=== PATIENT | male | born 1980 ===

== ENCOUNTER 2017-10-21 15:19 | Emergency (ER) | payer OTHER ==
[2017-10-21] MEDS ORDERED: Sodium Chloride 0.9% 1,000 ML IV STA (16:53)
--- NOTE | 2017-10-21 17:11 | ED PDOC ---
HPI: General Adult Time Seen by Provider: 10/21/17 16:32 Chief Complaint (Nursing): Flu-like Symptoms Chief Complaint (Provider): Fever History Per: Patient History/Exam Limitations: no limitations Onset/Duration Of Symptoms: Days (4) Current Symptoms Are (Timing): Still Present Additional History Per: Patient Additional Complaint(s): 37 y/o male with history of HIV who reports that his T-Cell count is "normal" and is compliant with antiviral therapy, complaining of fever for 4 days associated with diffuse body aches, head ache, joint pain (knees and low back). Patient also complains of a sore throat that began today. He also complains of swelling of the left groin that he has had for one week, but thought it was because he fell in his bathroom and did a split. He has been taking taking Motrin intermittently with the last dose two days ago. Patient denies any nausea , vomiting, diarrhea, constipation, rash, sick contacts, recent travel, new sexual partners, dysuria, hematuria, urinary frequency, penile discharge or penile lesion. PMD: [facility] at [facility] Past Medical History Vital Signs: Last Vital Signs Temp 98.8 F 10/21/17 21:16 Pulse 88 10/21/17 21:16 Resp 16 10/21/17 21:16 BP 114/77 10/21/17 21:16 Pulse Ox 97 10/21/17 21:38 - Medical History PMH: HIV - Surgical History Surgical History: No Surg Hx - Family History Family History: States: Unknown Family Hx - Social History Current smoker - smoking cessation education provided: No Ex-Smoker (has not smoked in the last 12 months): No Alcohol: Social Drugs: Denies - Home Medications Home Medications: Ambulatory Orders Medication Instructions Recorded Ibuprofen [Motrin] 600 mg PO Q6 PRN #15 tab 07/10/16 Tobramycin [Tobrex] 5 ml TOP QID #1 bottle 07/10/16 Acetaminophen [Tylenol Extra 1,000 mg PO Q6 PRN #100 tablet 10/21/17 Strength] Acyclovir [Zovirax] 400 mg PO TID #30 tablet 10/21/17 Doxycycline Monohydrate 100 mg PO BID #42 tablet 10/21/17 Ibuprofen [Motrin Tab] 600 mg PO Q8 PRN #60 tab 10/21/17 - Allergies Allergies/Adverse Reactions: Allergies Allergy/AdvReac Type Severity Reaction Status Date / Time No Known Allergies Allergy Verified 10/21/17 15:57 Review of Systems ROS Statement: Except As Marked, All Systems Reviewed And Found Negative Constitutional: Positive for: Fever ENT: Positive for: Throat Pain Genitourinary Male: Positive for: Other (inguinal swelling) Musculoskeletal: Positive for: Back Pain, Other (joint pain, myalgias) Physical Exam - Reviewed Nursing Documentation Reviewed: Yes Vital Signs Reviewed: Yes - Physical Exam Appears: Positive for: Non-toxic (tired) Skin: Positive for: Diaphoresis Eye Exam: Positive for: EOMI, PERRL ENT: Positive for: Normal ENT Inspection, Pharynx Is (normal). Negative for: Pharyngeal Erythema, Tonsillar Exudate, Tonsillar Swelling Neck: Positive for: Normal, Painless ROM, Supple Cardiovascular/Chest: Positive for: Regular Rate, Rhythm. Negative for: Murmur Respiratory: Positive for: Normal Breath Sounds. Negative for: Wheezing, Respiratory Distress Gastrointestinal/Abdominal: Positive for: Soft. Negative for: Tenderness, Mass , Distended, Guarding Male Genital Exam: Positive for: normal genitalia (uncircumcised), no hernia, inguinal tenderness (left, over area of swelling), other (3x2 cm left ingunal lymphadenopathy, without fluctuance, but is mildly tender to palpation. ). Negative for: epididymal tenderness, erythema, scrotum tenderness (R), scrotum tenderness (L), testicular tenderness (R), testicular tenderness (L) Back: Positive for: Other (right lumbacr tenderness to palpation, bilateral straight leg raise is negative). Negative for: Vertebral Tenderness Extremity: Positive for: Normal ROM. Negative for: Deformity Lymphatic: Positive for: Inguinal Node Tenderness (left). Negative for: Adenopathy (cervical), Axilla Node Tenderness Neurologic/Psych: Positive for: Alert. Negative for: Motor/Sensory Deficits - Laboratory Results Result Diagrams: 10/21/17 17:50 10/21/17 17:50 - ECG O2 Sat by Pulse Oximetry: 97 (RA) Pulse Ox Interpretation: Normal - Radiology X-Ray: Interpreted by Me, Viewed By Me X-Ray Interpretation: No Acute Disease Medical Decision Making Medical Decision Making: Impression: Fever, HIV, Inguinal Lymphadenopathy Differential diagnosis includes, but is not limited to: Lymphoma, sTD, Inguinal Abscess, Viral Syndrome, Sepsis Plan: - Labs - IVF, Tylenol, Toradol - UA Accession No. : [id number] Patient Name / ID : PETE FITZGERALD / [id number] Exam Date : 10/21/2017 17:44:43 ( Approved ) Study Comment : Sex / Age : M / 37Y Creator : Anival Bethea MD Dictator : Anival Bethea MD Airframe Design Engineer : Track Sweeper : Anival Bethea MD Approver2 : Report Date : 10/21/2017 18:05:03 My Comment : PROCEDURE: left Groin Ultrasonography HISTORY: LEFT groin swelling h/o HIV possible lymphoma COMPARISON: None available. TECHNIQUE: High-frequency ultrasonography of the left inguinal region was performed for evaluation of palpable abnormality. Transverse and longitudinal projections of been submitted. FINDINGS: In the area of interest of the palpable abnormality is a 2.7 x 1.7 x 2.5 cm hypoechoic lesion superficial to a nearly identical but smaller hypoechoic lesion measuring 1.6 x 1.0 x 1.6 cm. The larger of the 2 exhibits limited peripheral color Doppler blood flow. No central fatty echoes are identified to suggest lymph nodes, however, these may reflect suppurative or necrotic lymph nodes. Small metastases or abscesses are the differential diagnosis. IMPRESSION: Two small, separate over necrotic lymph nodes are suggested at the left inguinal region versus possible small abscesses or even metastases. Further clinical evaluation advised. CT scan ordered to further evaluate for metastases or other lesions DW pt findings. Pt reports feeling better s/p fluids/toradol/tylenol. [facility] Preliminary Radiology Report Call: [phone] assistance Online chat: [email or web address] Patient Name: LIA FREEMAN (Age): 1980 37 Gender: M Date of Exam: 10/21/2017 Referring Physician: Michaela Toney # of Images: [id number] Ordered As: CT ABD PELVIS IV CONTRAST ONLY EXAM: CT Abdomen and Pelvis With Intravenous Contrast EXAM DATE/TIME: 10/21/2017 7:12 PM CLINICAL HISTORY: 37 years old, male; Signs and symptoms; Fever and mass, lump, or swelling; Other : Lt inguinal; Additional info: Fever back pain left inguinal swelling R/O mets TECHNIQUE: Axial computed tomography images of the abdomen and pelvis with intravenous contrast. All CT scans at this facility use one or more dose reduction techniques, viz.: automated exposure control; ma/kV adjustment per patient size (including targeted exams where dose is matched to indication; i.e. head); or iterative reconstruction technique. Coronal and sagittal reformatted images were created and reviewed. CONTRAST: 90 mL of [id number] administered intravenously. COMPARISON: No relevant prior studies available. FINDINGS: Lung bases: Unremarkable. No mass. No consolidation. ABDOMEN: Liver: The liver is unremarkable. Gallbladder and bile ducts: The gallbladder is unremarkable. No biliary ductal dilatation. Pancreas: The pancreas is unremarkable. Spleen: The spleen is unremarkable. Adrenals: The adrenal glands are unremarkable. Kidneys and ureters: Symmetric renal enhancement without hydronephrosis. Stomach and bowel: No evidence of bowel obstruction. No pericolonic inflammatory stranding. Appendix: A normal appendix is identified. PELVIS: Bladder: Unremarkable. No mass. Reproductive: Unremarkable as visualized. LIA FREEMAN | Preliminary Radiology Report WAFER PRODUCTION WORKER (QA) DISCREPANCY? If there is a discrepancy between the preliminary and final interpretation, please notify [facility] via [email or web address]. If you do not have access to our QA portal, call our QA team at [phone] CONFIDENTIALITY STATEMENT This report is intended only for the use of the referring physician, and only in accordance with law, If you received this in error, call [phone] Page 2 of 2 ABDOMEN and PELVIS: Intraperitoneal space: No significant peritoneal free fluid. No free peritoneal air. Bones/joints: No acute osseous abnormality. Soft tissues: No soft tissue swelling. Vasculature: Unremarkable. No abdominal aortic aneurysm. Lymph nodes: 2.5 cm enlarged left inguinal lymph node with adjacent inflammatory stranding. Adjacent borderline enlarged 1 cm and 0.9 cm lymph nodes. IMPRESSION: 2.5 cm enlarged left inguinal lymph node with adjacent inflammatory stranding. Adjacent borderline enlarged lymph nodes. Lymphadenitis, reactive adenopathy and neoplasm are considered. Thank you for allowing us to participate in the care of your patient. Dictated and Authenticated by: Evens Marshall MD 10/21/2017 8:27 PM Eastern Time ([place] & [place]) Labs with no emergently significant lab abnormalities. Pt has syndrome of acute STD. DW pt findings. Pt will be treated for LGV, Chlamydia, Gonorrhea, Syphilis, HSV. Mandatory followup with his clinic next week. Reasons to RTER dw pt. Labs reviewed and was positive for Syphilis. Patient informed of this and he reports that he has been treated for this in the past. -- Scribe Attestation: Documented by Stephania Montes, acting as a scribe for Michaela Toney MD. Provider Scribe Attestation: All medical record entries made by the Scribe were at my direction and personally dictated by me. I have reviewed the chart and agree that the record accurately reflects my personal performance of the history, physical exam, medical decision making, and the department course for this patient. I have also personally directed, reviewed, and agree with the discharge instructions and disposition. Disposition - Clinical Impression Clinical Impression: Inguinal lymphadenopathy Doctor Will See Patient In The: Office Counseled Patient/Family Regarding: Diagnosis, Need For Followup, Rx Given - Disposition Disposition: Routine/Home Disposition Time: 20:30 Condition: IMPROVED Additional Instructions: VISITA NOEL DOCTOR PROXIMO SEMANA A CHEQAR DE NUEVO REGRESA SI SIENTE PEOR. LO QUE NECESITA SABER: La linfoadenopata es leo inflamacin en dolly ganglios linfticos. Los ganglios linfticos son rganos pequeos que son parte de noel sistema inmunolgico. Los ganglios linfticos esta localizados por todo noel cuerpo. Se pueden sentir mejor en noel airam, debajo del noel brazos y cerca de noel neto. Linfoadenopata puede ocurir en fidel o ms reas de noel cuerpo. Generalmente es causada por leo infecci n. [facility]: Regrese a la larry de emergencias si: Los gnglios linfticos inflamados estn sangrando. Los gnglios linfticos inflamados en el airam afectan la respiracin o habilidad para tragar. Pregntele a noel mdico qu vitaminas y minerales son adecuados para usted. Usted tiene fiebre. Usted tiene leo nueva inflamacin o dolor en los ganglos linfticos. Usted tiene un sarpullido. Dolly gnglios linfticos permanecen inflamados y dolorosos o se alfred agrandado. Dolly gnglios linfticos tienen lneas hardin a noel alrededor, o la piel alrededor de los gnglios esta enrojecida. Usted tiene preguntas o inquietudes acerca de noel condicin o cuidado. Acuda a dolly consultas de control con noel mdico segn le indicaron. Anote dolly preguntas para que se acuerde de hacerlas lucio dolly visitas. Cuidados personales: No empuje ni apriete los gnglios linfticos que estn inflamados. Aplique calor sobre los ganglios linfticos. Puede usar compresas tibias, o leo almohadilla elctrica a leo temperatura baja. Descanse tanto umm sea necesario. Si tiene fiebre, descanse hasta que noel temperatura se haya normalizado. Regrese a dolly actividades normales diarias lentamente despus que haya suspendido noel fiebre. Prescriptions: Acetaminophen [Tylenol Extra Strength] 1,000 mg PO Q6 PRN #100 tablet PRN Reason: FEVER OR PAIN Acyclovir [Zovirax] 400 mg PO TID #30 tablet Doxycycline Monohydrate 100 mg PO BID #42 tablet Ibuprofen [Motrin Tab] 600 mg PO Q8 PRN #60 tab PRN Reason: Pain, Moderate (4-7) Instructions: Fever, Adult (DC) Forms: [facility] ED School/Work Excuse Print Language: VENEZUELAN
[2017-10-21 17:56] LABS: SQUAMOUS EPITHIAL 2 /hpf (0-5); URINE BACTERIA RARE (<OCC); URINE BILIRUBIN NEGATIVE (NEGATIVE); URINE BLOOD SMALL (NEGATIVE); URINE CLARITY SLIGHTY-CLOUDY (Clear); URINE COLOR YELLOW (YELLOW); URINE GLUCOSE (UA) NEG (Normal); URINE LEUKOCYTE ESTERASE NEG Leu/uL (Negative); URINE PROTEIN 30 mg/dL (NEGATIVE)
[2017-10-21 18:00] LABS: VENOUS BLOOD GAS BASE EXCESS 6.7 mmol/L (0.0-2.0); VENOUS BLOOD GAS PCO2 55 mmHg (40-60); VENOUS BLOOD GAS PO2 33 mm/Hg (30-55); VENOUS BLOOD PH 7.39 (7.32-7.43)
--- NOTE | 2017-10-21 18:06 | US ---
PROCEDURE: left Groin Ultrasonography HISTORY: LEFT groin swelling h/o HIV possible lymphoma COMPARISON: None available. TECHNIQUE: High-frequency ultrasonography of the left inguinal region was performed for evaluation of palpable abnormality. Transverse and longitudinal projections of been submitted. FINDINGS: In the area of interest of the palpable abnormality is a 2.7 x 1.7 x 2.5 cm hypoechoic lesion superficial to a nearly identical but smaller hypoechoic lesion measuring 1.6 x 1.0 x 1.6 cm. The larger of the 2 exhibits limited peripheral color Doppler blood flow. No central fatty echoes are identified to suggest lymph nodes, however, these may reflect suppurative or necrotic lymph nodes. Small metastases or abscesses are the differential diagnosis. IMPRESSION: Two small, separate over necrotic lymph nodes are suggested at the left inguinal region versus possible small abscesses or even metastases. Further clinical evaluation advised.
[2017-10-21 18:07] LABS: BASO # 0.1 K/uL (0.0-0.2); BASO % 0.4 % (0.0-2.0); EOS # 0.1 K/uL (0.0-0.7); EOS % 1.1 % (0.0-4.0); HEMOGLOBIN 12.3 g/dL (12.0-18.0); LYMPH # 2.5 K/uL (1.0-4.3); LYMPH % 20.5 % (20.0-40.0); MEAN CELL VOLUME 91.8 fl (80.0-94.0); MEAN CORPUSCULAR HEMOGLOBIN 31.1 pg (27.0-31.0); MEAN CORPUSCULAR HGB CONC 33.9 g/dL (33.0-37.0); MEAN PLATELET VOLUME 8.8 fl (7.2-11.7); MONO # 1.1 K/uL (0.0-0.8); MONO % 9.3 % (0.0-10.0); NEUT # 8.2 K/uL (1.8-7.0); NEUT % 68.7 % (50.0-75.0); RBC 3.97 Mil/uL (4.40-5.90); RED CELL DISTRIBUTION WIDTH 12.8 % (11.5-14.5)
[2017-10-21 18:09] LABS: ALB/GLOB RATIO 1.1 (1.0-2.1); ALBUMIN 4.1 g/dL (3.5-5.0); ALT/SGPT 38 U/L (21-72); AST/SGOT 23 U/L (17-59); BLOOD UREA NITROGEN 11 mg/dl (9-20); CALCIUM 9.4 mg/dL (8.4-10.2); GFR AFRICAN-AMERICAN > 60; GFR NON-AFRICAN AMERICAN > 60
[2017-10-21 18:16] LABS: INR 1.2 (0.9-1.2); PARTIAL THROMBOPLASTIN TIME 28.4 Seconds (25.6-37.1); PROTHROMBIN TIME 13.6 Seconds (9.8-13.1)
--- NOTE | 2017-10-21 18:28 | RAD ---
HISTORY: fever COMPARISON: No prior. TECHNIQUE: Chest PA and lateral FINDINGS: LUNGS: No active pulmonary disease. PLEURA: No significant pleural effusion identified. No pneumothorax apparent. CARDIOVASCULAR: Normal. OSSEOUS STRUCTURES: No significant abnormalities. VISUALIZED UPPER ABDOMEN: Normal. OTHER FINDINGS: None. IMPRESSION: No acute cardiopulmonary disease appreciated.
[2017-10-21] MEDS ORDERED: Iohexol 300 100 ML IJ ONE (19:24)
[2017-10-21] MEDS ORDERED: Sodium Chloride 0.9% 100 ML ONE (19:25)
[2017-10-21] MEDS ORDERED: Penicillin G Benzathine 2.4 Mill Unit/4 ml Syr IM STA (20:38)
[2017-10-21] MEDS ORDERED: cefTRIAXone (Rocephin) 250 mg Inj IM STA (20:39)
[2017-10-21] MEDS ORDERED: cefTRIAXone (Rocephin) 250 mg Inj ONE (21:08)
[2017-10-21 21:16] VITALS: BP 114/77; PULSE 88; RESP 16; TEMP 98.8
[2017-10-21 21:33] LABS: RAPID PLASMA REAGIN REACTIVE (NONREACTIVE)
[2017-10-21 21:38] VITALS: O2SAT 97
--- NOTE | 2017-10-22 08:43 | CT ---
PROCEDURE: CT Abdomen and Pelvis with contrast HISTORY: fever back pain LEFT inguinal swelling r/o mets COMPARISON: None. TECHNIQUE: Contrast dose: 90 mL Omnipaque 300 Radiation dose: Total exam DLP = 302.3 mGy-cm. This CT exam was performed using one or more of the following dose reduction techniques: Automated exposure control, adjustment of the mA and/or kV according to patient size, and/or use of iterative reconstruction technique. FINDINGS: LOWER THORAX: Unremarkable. LIVER: Unremarkable. No gross lesion or ductal dilatation. GALLBLADDER AND BILE DUCTS: Unremarkable. PANCREAS: Unremarkable. No gross lesion or ductal dilatation. SPLEEN: Unremarkable. ADRENALS: Unremarkable. No mass. KIDNEYS AND URETERS: Unremarkable. No hydronephrosis. No solid mass. VASCULATURE: Unremarkable. No aortic aneurysm. BOWEL: Unremarkable. No obstruction. No gross mural thickening. APPENDIX: Normal appendix. PERITONEUM: Unremarkable. No free fluid. No free air. LYMPH NODES: 2.9 x 2.5 cm left inguinal lymph node with adjacent inflammatory change. Adjacent borderline enlarged left inguinal regional lymph nodes. BLADDER: Unremarkable. REPRODUCTIVE: Unremarkable. BONES: No acute fracture. OTHER FINDINGS: None. IMPRESSION: Enlarged left inguinal lymph node with adjacent inflammatory change and adjacent prominent lymph nodes. No evidence of distal lymphadenopathy.
[2017-10-22 15:29] LABS: % CD4 (T HELPER CELL) 19 Percent (30-61); % CD8 (SUPPRESSOR T CELL) 57 Percent (12-42); ABSOLUTE CD4 CELLS 487 Cells/mcL (490-1740); ABSOLUTE CD8 CELLS 1469 Cells/mcL (180-1170); ABSOLUTE LYMPHOCYTES 2578 Cells/mcL (850-3900); HELPER/SUPPRESSOR RATIO 0.33 Ratio (0.86-5.00)
== END 2017-10-21 22:05 | disposition home or self-care (01) ==
LOC: H.ER 15:19
DX: R59.1 Generalized enlarged lymph nodes (principal); Z21 Asymptomatic human immunodeficiency virus [HIV] infection status; Z87.891 Personal history of nicotine dependence
CPT/HCPCS: 71046; 74177; 76882; 80053; 81003; 82803; 85025; 85610; 85730; 86308; 86360; 86592; 86695; 86696; 86780; 87040; 87070; 87086; 87430; 87491; 87536; 87591; 87804; 96372; 96374; 99283; J0561; J0696; J1885; J7040; Q9967

== ENCOUNTER 2017-10-28 15:07 | Emergency (ER) | payer OTHER ==
[2017-10-28 15:23] VITALS: BP 123/78; PULSE 70; RESP 18; TEMP 98.1; O2SAT 100
[2017-10-28] MEDS ORDERED: Penicillin G Benzathine 2.4 Mill Unit/4 ml Syr IM STA (15:56)
--- NOTE | 2017-10-28 16:07 | ED PDOC ---
HPI: General Adult Time Seen by Provider: 10/28/17 15:20 Chief Complaint (Nursing): Abnormal Labs Chief Complaint (Provider): Positive RPR - Call back History Per: Patient History/Exam Limitations: no limitations Additional Complaint(s): Pt was seen in ER 2 days ago for headache and fever. Pts RPR was positive. Pt returns to ER for treatment. Pt states he was treated for syphilis 1 year ago. Past Medical History Reviewed: Historical Data, Nursing Documentation, Vital Signs Vital Signs: Last Vital Signs Temp 98.1 F 10/28/17 15:19 Pulse 70 10/28/17 15:19 Resp 18 10/28/17 15:19 BP 123/78 10/28/17 15:19 Pulse Ox 100 10/28/17 15:19 - Medical History PMH: HIV, Sexually Transmitted Disease - Surgical History Surgical History: No Surg Hx - Family History Family History: States: Unknown Family Hx - Living Arrangements Living Arrangements: With Family - Social History Current smoker - smoking cessation education provided: No - Home Medications Home Medications: Ambulatory Orders Medication Instructions Recorded Ibuprofen [Motrin] 600 mg PO Q6 PRN #15 tab 07/10/16 Tobramycin [Tobrex] 5 ml TOP QID #1 bottle 07/10/16 Acetaminophen [Tylenol Extra 1,000 mg PO Q6 PRN #100 tablet 10/21/17 Strength] Acyclovir [Zovirax] 400 mg PO TID #30 tablet 10/21/17 Doxycycline Monohydrate 100 mg PO BID #42 tablet 10/21/17 Ibuprofen [Motrin Tab] 600 mg PO Q8 PRN #60 tab 10/21/17 - Allergies Allergies/Adverse Reactions: Allergies Allergy/AdvReac Type Severity Reaction Status Date / Time No Known Allergies Allergy Verified 10/21/17 15:57 Review of Systems ROS Statement: Except As Marked, All Systems Reviewed And Found Negative Constitutional: Negative for: Fever, Chills Skin: Negative for: Rash, Lesions Neurological: Negative for: Seizures, Altered Mental Status Physical Exam - Reviewed Nursing Documentation Reviewed: Yes Vital Signs Reviewed: Yes - Physical Exam Appears: Positive for: Well, Non-toxic, No Acute Distress Head Exam: Positive for: ATRAUMATIC, NORMAL INSPECTION, NORMOCEPHALIC Skin: Positive for: Normal Color, Warm, DRY Eye Exam: Positive for: Normal appearance ENT: Positive for: Normal ENT Inspection Neck: Positive for: Normal, Painless ROM Cardiovascular/Chest: Positive for: Regular Rate, Rhythm Respiratory: Positive for: CNT, Normal Breath Sounds Back: Positive for: Normal Inspection Extremity: Positive for: Normal ROM Neurologic/Psych: Positive for: Alert, Oriented - ECG O2 Sat by Pulse Oximetry: 100 Medical Decision Making Medical Decision Making: Discussed with Dr. Delgado. Would like pt treated and syphilis titers ordered. States patient can follow-up with him. Called lab and was told the order for syphilis titer is FTA-ABS. Disposition - Clinical Impression Clinical Impression: Syphilis - Patient ED Disposition Is Patient to be Admitted: No Counseled Patient/Family Regarding: Diagnosis, Need For Followup - Disposition Referrals: Russell Delgado MD [Staff Provider] - Disposition: Routine/Home Disposition Time: 16:13 Condition: STABLE Instructions: Syphilis (DC)
== END 2017-10-28 17:03 | disposition home or self-care (01) ==
LOC: H.ER 15:07
DX: A53.9 Syphilis, unspecified (principal)
CPT/HCPCS: 86780; 96372; 99281; J0561